=== PATIENT | female | born 1950 | race Hispanic/Latino ===

== ENCOUNTER 2020-09-27 14:43 | Observation (INO) | payer SELFPAY ==
--- NOTE | 2020-09-27 15:07 | RAD REPORT ---
EXAM DESCRIPTION: CT - Ct Stroke Brain Wo Cont - 09/27/2020 2:56 pm CLINICAL HISTORY: NUMBNESS Headache, drowsiness, CVA COMPARISON: No comparisons TECHNIQUE: All CT scans are performed using dose optimization technique as appropriate and may inclu de automated exposure control or mA/KV adjustment according to patient size. FINDINGS: No intracranial hemorrhage, hydrocephalus or extra-axial fluid collection.No areas of brai n edema or evidence of midline shift. Mild mucosal thickening of the right maxillary antrum sphenoid sinus. The calvarium is intact. IMPRESSION: No acute intracranial abnormality. The findings were discussed with Dr. Jerez in the ER On on 06/28/2020 at 2:55 p.m. by telephone.
[2020-09-27 15:11] LABS: Absolute Lymphocytes (CBC) 4.7 K/uL (0.7-4.9); Basophils % 0.2 % (0-1.3); Hematocrit 42.5 % (36.0-45.0); Lymphocytes % 43.3 % (15.3-44.8); MPV 8.8 fL (7.6-11.3)
[2020-09-27 15:19] LABS: Protime INR 1.03
[2020-09-27 15:25] LABS: Potassium 3.8 mmol/L (3.5-5.1)
--- NOTE | 2020-09-27 15:29 | RAD REPORT ---
EXAM DESCRIPTION: RAD - Chest Single View - 09/27/2020 3:07 pm CLINICAL HISTORY: stroke Chest pain. COMPARISON: <Comparisons> FINDINGS: Portable technique limits examination quality. The lungs are grossly clear. The heart is normal in size. No displaced fractures. IMPRESSION: No acute intrathoracic process suspected.
--- NOTE | 2020-09-27 16:10 | RAD REPORT ---
EXAM DESCRIPTION: CT - Head angio - 09/27/2020 3:55 pm CLINICAL HISTORY: TIA Headache, drowsiness COMPARISON: Ct Stroke Brain Wo Cont dated 09/27/2020 TECHNIQUE: CT angiography of the head was performed with MIPs. All CT scans are performed using dose optimization technique as appropriate and may include automated exposure control or mA/KV adjustment according to patient size. FINDINGS: No evidence of aneurysm is detected. No flow-limiting stenosis or vascular malformation id entified. The basilar artery is diminutive in size likely related to origin of both posterior c ommunicating is, normal variation Antegrade flow is seen in the vertebral arteries. Left vertebral artery is dominant The visualized dural venous sinuses are patent. Mild sinus opacification. IMPRESSION: No significant flow abnormality is detected.
--- NOTE | 2020-09-27 16:24 | RAD REPORT ---
EXAM DESCRIPTION: CT - Neck Angio - 09/27/2020 3:56 pm CLINICAL HISTORY: tia Headache, drowsiness COMPARISON: No comparisons TECHNIQUE: CT angiography of the neck vessels was performed with MIPs. All CT scans are performed using dose optimization technique as appropriate and may include automated exposure control or mA/KV adjustment according to patient size. FINDINGS: A left aortic arch is identified. Aberrant right subclavian artery noted, normal variant. No significant flow abnormality is seen of the common carotid bilaterally. Mild narrowing of both carotid bulbs is seen, slightly greater on the left. Normal flow is seen within both vertebral arteries. IMPRESSION: Mild narrowing (less than 50% based on NASCET criteria) of both carotid bulbs is noted, slightly greater on the left.
--- NOTE | 2020-09-27 16:56 | ER ---
Nurse's Notes [facility] Name: Luzma Wright Age: 70 yrs Sex: Female : 1950 Arrival Date: 09/27/2020 Time: 14:47 Bed 14 Private MD: Diagnosis: Transient cerebral ischemic attack, unspecified Presentation: 09/27 15:04 Chief complaint: EMS states: Pt began feeling numbness around 1400 in Left side of vg1 face, left arm and left leg lasting about 2-3 minutes. Pt sensation is intermittent. Then at 1420 she lost sensation again; then at 1430 and 1440, lasting about 2-3 minutes. Coronavirus screen: Client denies travel out of the [place] in the last 14 days. Ebola Screen: Patient negative for fever greater than or equal to 101.5 degrees Fahrenheit, and additional compatible Ebola Virus Disease symptoms. Initial Sepsis Screen: Does the patient meet any 2 criteria? Yes Does the patient have a suspected source of infection? No. Patient's initial sepsis screen is negative. Risk Assessment: Do you want to hurt yourself or someone else? Patient reports no desire to harm self or others. Onset of symptoms was September 27, 2020. 15:04 Method Of Arrival: EMS: [facility] 1 15:04 Acuity: HOOD 2 vg1 Triage Assessment: 15:09 Pain: Denies pain. vg1 15:09 General: Appears in no apparent distress. comfortable, Behavior is calm, cooperative. vg1 EENT: No signs and/or symptoms were reported regarding the EENT system. Neuro: Level of Consciousness is awake, alert, obeys commands, Oriented to person, place, time, situation, Cashier Payments Received are equal bilaterally Moves all extremities. Speech is normal, Facial symmetry appears normal. Cardiovascular: Patient's skin is warm and dry. Respiratory: Airway is patent Respiratory effort is even, unlabored. GI: No signs and/or symptoms were reported involving the gastrointestinal system. : No signs and/or symptoms were reported regarding the genitourinary system. Derm: Skin is intact, is healthy with good turgor. Musculoskeletal: Circulation, motion, and sensation intact. Historical: - Allergies: 15:26 PENICILLINS; vg1 - Immunization history:: Adult Immunizations up to date. - Social history:: Smoking status: unknown. Screenin:08 Abuse screen: Denies threats or abuse. Nutritional screening: No deficits noted. vg1 Tuberculosis screening: No symptoms or risk factors identified. Fall Risk No fall in past 12 months (0 pts). No secondary diagnosis (0 pts). IV access (20 points). Ambulatory Aid- Gait- Impaired (20 pts.). Mental Status- Oriented to own ability (0 pts). Total [place] Fall Scale indicates Low Risk Score (25-44 pts). Fall prevention measures have been instituted. Side Rails Up X 2 Placed close to Nursing Station Family Present and informed to notify staff if they need to leave bedside. Assessment: 14:43 Reassessment: Code Stroke called. hb 16:00 Reassessment: Patient appears in no apparent distress at this time. No changes from vg1 previously documented assessment. Patient and/or family updated on plan of care and expected duration. Pain level reassessed. Patient is alert, oriented x 3, equal unlabored respirations, skin warm/dry/pink. Patient denies pain at this time. 16:53 Reassessment: Patient appears in no apparent distress at this time. Patient and/or 1 family updated on plan of care and expected duration. Pain level reassessed. Patient is alert, oriented x 3, equal unlabored respirations, skin warm/dry/pink. Patient denies pain at this time. Patient states feeling better. 19:05 Reassessment: Patient appears in no apparent distress at this time. Patient and/or family updated on plan of care and expected duration. Pain level reassessed. Patient is alert, oriented x 3, equal unlabored respirations, skin warm/dry/pink. Vital Signs: 15:04 BP 203 / 76; Pulse 68; Resp 22; Temp 98.2; Pulse Ox 98% on R/A; Weight 65.77 kg; Height vg1 5 ft. 2 in. (157.48 cm); Pain 0/10; 16:02 BP 173 / 64; Pulse 58; Resp 14; Pulse Ox 98% on R/A; vg1 16:52 BP 183 / 66; Pulse 60; Resp 16; Pulse Ox 96% on R/A; vg1 19:00 BP 177 / 80; Pulse 55; Resp 18; Pulse Ox 98% on R/A; wh 20:11 BP 167 / 78; Pulse 56; Resp 18; Pulse Ox 97% on R/A; wh 15:04 Body Mass Index 26.52 (65.77 kg, 157.48 cm) vg1 NIH Stroke Scale Scores: 15:08 NIHSS Score: 0 vg1 16:47 NIHSS Score: 0 jr8 ED Course: 14:47 Patient arrived in ED. vg1 14:52 Initial lab(s) drawn, by ED staff, sent to lab. EKG done, by ED staff, reviewed by Pool TORRES. 14:52 Maintain EMS IV. Dressing intact. Site clean \T\ dry. Gauge \T\ site: 20G R FA. hb 14:52 Patient has correct armband on for positive identification. Placed in gown. Bed in low hb position. Call light in reach. Side rails up X2. classroom monitor on. Pulse ox on. NIBP on. Head of bed elevated. 14:56 CT Stroke Brain w/o Contrast In Process Unspecified. EDMS 14:57 Arm band placed on. hb 15:00 Pool Clayton PA is PHCP. jr8 15:00 Vini Jerez MD is Attending Physician. jr8 15:01 Sana Carvajal RN is Primary Nurse. vg1 15:06 Triage completed. vg1 15:07 Stroke CXR 1 View In Process Unspecified. EDMS 15:10 Inserted saline lock: 20 gauge in left antecubital area, using aseptic technique. vg1 ,using aseptic technique. completed by DEIDRA Lopez. 15:55 CT Head Angio In Process Unspecified. EDMS 15:55 CT Neck Angio In Process Unspecified. EDMS 16:56 Lo Boyle MD is Hospitalizing Provider. jr8 19:11 Report given to DEIDRA Manning. vg1 20:12 No provider procedures requiring assistance completed. Patient admitted, IV remains in place. Administered Medications: 16:48 Drug: PlaVIX (clopidogrel) 75 mg Route: PO; vg1 19:27 Follow up: Response: No adverse reaction 16:49 Drug: foLIC Acid 1 mg Route: IVPB; Site: left antecubital; vg1 20:13 Follow up: Response: No adverse reaction; IV Status: Completed infusion Outcome: 16:56 Decision to Hospitalize by Provider. jr8 20:12 Admitted to Tele accompanied by tech, via wheelchair, room 403, with chart, Report wh called to Isaac Dobson RN 20:12 Condition: stable 20:12 Instructed on the need for admit. 20:39 Patient left the ED. NIH Stroke Scale - NIH Stroke Score Date: 09/27/2020 Time: 15:08 Total Score = 0 1a. Level of Consciousness (LOC) - 0(Alert) 1b. Level of Consciousness (LOC) (Year \T\ Age) - 0(Both) 1c. LOC Commands (Open \T\ Closes Eyes/Road Supervisor Of Engines) - 0(Both) 2. Best Gaze (Lateral Gaze Paresis) - 0(Normal) 3. Visual Field Loss - 0(No visual loss) 4. Facial Palsy - 0(Normal) 5a. Left Arm: Motor (10-second hold) - 0(No drift) 5b. Right Arm: Motor (10-second hold) - 0(No drift) 6a. Left Leg: Motor (5-second hold - always test supine) - 0(No drift) 6b. Right Leg: Motor (5-second hold - always test supine) - 0(No drift) 7. Limb Ataxia (finger/nose \T\ heel/gregorio - test with eyes open) - 0(Absent) 8. Sensory Loss (pinprick arms/legs/face) - 0(Normal) 9. Best Language: Aphasia (description/naming/reading) - 0(No aphasia) 10. Dysarthria (speech clarity - read or repeat words) - 0(Normal) 11. Extinction and Inattention (visual/tactile/auditory/spatial/personal) - 0(No abnormality) Initials: vg1 NIH Stroke Scale - NIH Stroke Score Date: 09/27/2020 Time: 16:47 Total Score = 0 1a. Level of Consciousness (LOC) - 0(Alert) 1b. Level of Consciousness (LOC) (Year \T\ Age) - 0(Both) 1c. LOC Commands (Open \T\ Closes Eyes/Road Supervisor Of Engines) - 0(Both) 2. Best Gaze (Lateral Gaze Paresis) - 0(Normal) 3. Visual Field Loss - 0(No visual loss) 4. Facial Palsy - 0(Normal) 5a. Left Arm: Motor (10-second hold) - 0(No drift) 5b. Right Arm: Motor (10-second hold) - 0(No drift) 6a. Left Leg: Motor (5-second hold - always test supine) - 0(No drift) 6b. Right Leg: Motor (5-second hold - always test supine) - 0(No drift) 7. Limb Ataxia (finger/nose \T\ heel/gregorio - test with eyes open) - 0(Absent) 8. Sensory Loss (pinprick arms/legs/face) - 0(Normal) 9. Best Language: Aphasia (description/naming/reading) - 0(No aphasia) 10. Dysarthria (speech clarity - read or repeat words) - 0(Normal) 11. Extinction and Inattention (visual/tactile/auditory/spatial/personal) - 0(No abnormality) Initials: jr8 Signatures: Dispatcher [employer] EDMS Pool Clayton PA PA jr8 Adriana Edouard RN RN Nigel Cazares, RN RN Sana Carvajal RN RN vg1 Corrections: (The following items were deleted from the chart) 15:28 15:07 Allergies: No Known Allergies; vg1 vg1
--- NOTE | 2020-09-27 16:57 | EDPHYS ---
Physician Documentation [facility] Name: Luzma Wright Age: 70 yrs Sex: Female : 1950 Arrival Date: 09/27/2020 Time: 14:47 Bed 14 Private MD: ED Physician Vini Jerez HPI: 09/27 16:47 This 70 yrs old Female presents to ER via EMS with complaints of S/S of jr8 Possible Stroke. 16:47 The patient's problem is reported as a facial droop, on left, dysphasia, expressive jr8 aphasia, weakness, in the left upper extremity, in the left lower extremity. Onset: The symptoms/episode began/occurred acutely, today, at 14:00. The symptoms are alleviated by nothing. The symptoms are aggravated by nothing. Associated signs and symptoms: The patient has no apparent associated signs or symptoms. Severity of symptoms: At their worst the symptoms were moderate in the emergency department the symptoms have resolved. Patient's baseline: Neuro: alert and fully oriented, Motor: no deficits, Ambulation: walks without assistance, Speech: normal. The patient has not experienced similar symptoms in the past. The patient has not recently seen a physician. Patient called EMS out after having sudden onset facial droop and weakness. EMS stated that the episode resolved by the time they got there but since then has had three other episodes lasting approximately 2-3 min. Patient again with complete symptom resolution upon arrival . Historical: - Allergies: 15:26 PENICILLINS; vg1 - Immunization history:: Adult Immunizations up to date. - Social history:: Smoking status: unknown. ROS: 16:47 Eyes: Negative for injury, pain, redness, and discharge, ENT: Negative for injury, jr8 pain, and discharge, Neck: Negative for injury, pain, and swelling, Cardiovascular: Negative for chest pain, palpitations, and edema, Respiratory: Negative for shortness of breath, cough, wheezing, and pleuritic chest pain, Abdomen/GI: Negative for abdominal pain, nausea, vomiting, diarrhea, and constipation, Back: Negative for injury and pain, MS/Extremity: Negative for injury and deformity, Skin: Negative for injury, rash, and discoloration. 16:47 Neuro: Positive for weakness. Exam: 16:47 Radiologist reports: No acute ischemia or blood noted jr8 16:47 Constitutional: This is a well developed, well nourished patient who is awake, alert, and in no acute distress. ENT: Nares patent. No nasal discharge, no septal abnormalities noted. Tympanic membranes are normal and external auditory canals are clear. Oropharynx with no redness, swelling, or masses, exudates, or evidence of obstruction, uvula midline. Mucous membranes moist. Neck: Trachea midline, no thyromegaly or masses palpated, and no cervical lymphadenopathy. Supple, full range of motion without nuchal rigidity, or vertebral point tenderness. No Meningismus. Cardiovascular: Regular rate and rhythm with a normal S1 and S2. No gallops, murmurs, or rubs. Normal PMI, no JVD. No pulse deficits. Respiratory: Lungs have equal breath sounds bilaterally, clear to auscultation and percussion. No rales, rhonchi or wheezes noted. No increased work of breathing, no retractions or nasal flaring. Abdomen/GI: Soft, non-tender, with normal bowel sounds. No distension or tympany. No guarding or rebound. No evidence of tenderness throughout. Skin: Warm, dry with normal turgor. Normal color with no rashes, no lesions, and no evidence of cellulitis. MS/ Extremity: Pulses equal, no cyanosis. Neurovascular intact. Full, normal range of motion. Neuro: Awake and alert, GCS 15, oriented to person, place, time, and situation. Cranial nerves II-XII grossly intact. Motor strength 5/5 in all extremities. Sensory grossly intact. Cerebellar exam normal. 16:47 ECG was reviewed by the Attending Physician. Vital Signs: 15:04 BP 203 / 76; Pulse 68; Resp 22; Temp 98.2; Pulse Ox 98% on R/A; Weight 65.77 kg; Height vg1 5 ft. 2 in. (157.48 cm); Pain 0/10; 16:02 BP 173 / 64; Pulse 58; Resp 14; Pulse Ox 98% on R/A; vg1 16:52 BP 183 / 66; Pulse 60; Resp 16; Pulse Ox 96% on R/A; vg1 19:00 BP 177 / 80; Pulse 55; Resp 18; Pulse Ox 98% on R/A; wh 20:11 BP 167 / 78; Pulse 56; Resp 18; Pulse Ox 97% on R/A; wh 15:04 Body Mass Index 26.52 (65.77 kg, 157.48 cm) vg1 NIH Stroke Scale Scores: 15:08 NIHSS Score: 0 vg1 16:47 NIHSS Score: 0 jr8 MDM: 15:00 Patient medically screened. jr8 16:55 Data reviewed: vital signs, nurses notes, lab test result(s), EKG, radiologic studies, jr8 CT scan, plain films. Data interpreted: Pulse oximetry: on room air is 96 %. Interpretation: normal. Counseling: I had a detailed discussion with the patient and/or guardian regarding: the historical points, exam findings, and any diagnostic results supporting the discharge/admit diagnosis, lab results, radiology results, the need for further work-up and treatment in the hospital. ED course: Dr. Almaraz consulted and will see patient. Dr. Boyle to admit patient . 09/27 14:50 Order name: Basic Metabolic Panel; Complete Time: 15:45 [facility] 09/27 14:50 Order name: CBC with Diff; Complete Time: 15:23 [facility] 09/27 14:50 Order name: Protime (+inr); Complete Time: 15:45 [facility] 09/27 14:50 Order name: Ptt, Activated; Complete Time: 15:45 [facility] 09/27 15:07 Order name: Glucose, Ancillary Testing; Complete Time: 15:23 [facility] 09/27 17:20 Order name: Troponin I [facility] 09/27 17:20 Order name: Liver (Hepatic) Function [facility] 09/27 17:20 Order name: Magnesium [facility] 09/27 17:30 Order name: COVID-19 : Document "Date of Symptom Onset" if Symptomatic. sv 09/27 17:47 Order name: Comprehensive Metabolic Panel [facility] 09/27 14:50 Order name: Stroke CXR 1 View; Complete Time: 15:45 [facility] 09/27 14:50 Order name: CT Stroke Brain w/o Contrast; Complete Time: 15:23 [facility] 09/27 17:47 Order name: Comprehensive Metabolic Panel [facility] 09/27 17:47 Order name: CBC with Automated Diff [facility] 09/27 17:47 Order name: CBC with Automated Diff [facility] 09/27 17:47 Order name: Lipid Profile [facility] 09/27 17:47 Order name: Lipid Profile [facility] 09/27 17:47 Order name: Magnesium [facility] 09/27 17:47 Order name: Magnesium [facility] 09/27 17:47 Order name: Phosphorus [facility] 09/27 17:47 Order name: Phosphorus [facility] 09/27 17:47 Order name: Troponin I [facility] 09/27 17:47 Order name: Troponin I [facility] 09/27 19:45 Order name: SARS-COV-2 RT PCR [facility] 09/27 14:50 Order name: EKG; Complete Time: 14:51 09/27 14:50 Order name: Accucheck; Complete Time: 15: 09/27 14:50 Order name: Cardiac monitoring; Complete Time: 15: 09/27 14:50 Order name: EKG - Nurse/Tech; Complete Time: 15:12 09/27 14:50 Order name: IV Saline Lock; Complete Time: 15: 09/27 14:50 Order name: Labs collected and sent; Complete Time: 15: 09/27 14:50 Order name: NPO; Complete Time: 15: 09/27 14:50 Order name: O2 Per Protocol; Complete Time: 15: 09/27 14:50 Order name: O2 Sat Monitoring; Complete Time: 15: 09/27 14:50 Order name: Stroke Swallow Screen; Complete Time: 17:58 09/27 14:51 Order name: EKG; Complete Time: 14:51 09/27 14:51 Order name: Accucheck; Complete Time: 15: 09/27 14:51 Order name: Cardiac monitoring; Complete Time: 14:59 09/27 14:51 Order name: EKG - Nurse/Tech; Complete Time: 14:59 09/27 14:51 Order name: IV Saline Lock; Complete Time: 14:59 09/27 14:51 Order name: Labs collected and sent; Complete Time: 14:59 09/27 14:51 Order name: NPO; Complete Time: 14:59 09/27 14:51 Order name: O2 Per Protocol; Complete Time: 14:59 09/27 14:51 Order name: O2 Sat Monitoring; Complete Time: 14:59 09/27 14:51 Order name: Stroke Swallow Screen; Complete Time: 17:58 1 09/27 15:07 Order name: CT Head Angio; Complete Time: 16:30 jr8 09/27 15:07 Order name: CT Neck Angio; Complete Time: 16:30 jr8 09/27 17:47 Order name: Physical Therapy Consult [facility] 09/27 17:47 Order name: NPO [facility] 09/27 17:47 Order name: EKG Electrocardiogram [facility] 09/27 17:47 Order name: EKG Electrocardiogram [facility] 09/27 17:48 Order name: Speech Therapy Consult [facility] EC:47 Rate is 71 beats/min. Rhythm is regular, Normal Sinus Rhythm. QRS [place] is Normal. [place] jr8 interval is normal at 150 msec. QRS interval is normal at 84 msec. QT interval is normal at 416 msec. No Q waves. T waves are Normal. No ST changes noted. Clinical impression: Normal ECG. Reviewed by me. Administered Medications: 16:48 Drug: PlaVIX (clopidogrel) 75 mg Route: PO; vg1 19:27 Follow up: Response: No adverse reaction 16:49 Drug: foLIC Acid 1 mg Route: IVPB; Site: left antecubital; vg1 20:13 Follow up: Response: No adverse reaction; IV Status: Completed infusion Disposition: 09/27/20 16:56 Hospitalization ordered by Lo Boyle for Observation. Preliminary diagnosis is Transient cerebral ischemic attack, unspecified. - Bed requested for Telemetry/MedSurg (observation). - Status is Observation. - Condition is Stable. - Problem is new. - Symptoms are resolved. NIH Stroke Scale - NIH Stroke Score Date: 09/27/2020 Time: 15:08 Total Score = 0 1a. Level of Consciousness (LOC) - 0(Alert) 1b. Level of Consciousness (LOC) (Year \\T\\ Age) - 0(Both) 1c. LOC Commands (Open \\T\\ Closes Eyes/Long Term Care Phlebotomist) - 0(Both) 2. Best Gaze (Lateral Gaze Paresis) - 0(Normal) 3. Visual Field Loss - 0(No visual loss) 4. Facial Palsy - 0(Normal) 5a. Left Arm: Motor (10-second hold) - 0(No drift) 5b. Right Arm: Motor (10-second hold) - 0(No drift) 6a. Left Leg: Motor (5-second hold - always test supine) - 0(No drift) 6b. Right Leg: Motor (5-second hold - always test supine) - 0(No drift) 7. Limb Ataxia (finger/nose \\T\\ heel/gregorio - test with eyes open) - 0(Absent) 8. Sensory Loss (pinprick arms/legs/face) - 0(Normal) 9. Best Language: Aphasia (description/naming/reading) - 0(No aphasia) 10. Dysarthria (speech clarity - read or repeat words) - 0(Normal) 11. Extinction and Inattention (visual/tactile/auditory/spatial/personal) - 0(No abnormality) Initials: vg1 NIH Stroke Scale - NIH Stroke Score Date: 09/27/2020 Time: 16:47 Total Score = 0 1a. Level of Consciousness (LOC) - 0(Alert) 1b. Level of Consciousness (LOC) (Year \\T\\ Age) - 0(Both) 1c. LOC Commands (Open \\T\\ Closes Eyes/Long Term Care Phlebotomist) - 0(Both) 2. Best Gaze (Lateral Gaze Paresis) - 0(Normal) 3. Visual Field Loss - 0(No visual loss) 4. Facial Palsy - 0(Normal) 5a. Left Arm: Motor (10-second hold) - 0(No drift) 5b. Right Arm: Motor (10-second hold) - 0(No drift) 6a. Left Leg: Motor (5-second hold - always test supine) - 0(No drift) 6b. Right Leg: Motor (5-second hold - always test supine) - 0(No drift) 7. Limb Ataxia (finger/nose \\T\\ heel/gregorio - test with eyes open) - 0(Absent) 8. Sensory Loss (pinprick arms/legs/face) - 0(Normal) 9. Best Language: Aphasia (description/naming/reading) - 0(No aphasia) 10. Dysarthria (speech clarity - read or repeat words) - 0(Normal) 11. Extinction and Inattention (visual/tactile/auditory/spatial/personal) - 0(No abnormality) Initials: jr8 Addendum: 09/29/2020 14:56 Co-signature as Attending Physician, Vini Jerez MD I agree with the kdr assessment and plan of care. Signatures: Dispatcher [facility] [place], Laurie, RN RN dw Vini Jerez MD MD kdr Martinez, Eric em1 Pool Clayton, MELISSA PA jr8 Nigel Silva, DEIDRA GAY Wei, DEIDRA Hood RN vg1 Corrections: (The following items were deleted from the chart) 09/27 14:52 14:50 CT-STROKE BRAIN W/O CONTRAST+CT.RAD.BRZ ordered. EDMS EDMS 15:06 14:51 Chest Single View+RAD.RAD.BRZ ordered. EDMS EDMS 15:15 14:51 BASIC METABOLIC PANEL+C.LAB.BRZ ordered. EDMS EDMS 15:15 14:51 CBC+H.LAB.BRZ ordered. EDMS EDMS 15:15 14:51 PROTIME (+INR)+COAG.LAB.BRZ ordered. EDMS EDMS 15:15 14:51 PTT, ACTIVATED+COAG.LAB.BRZ ordered. EDMS EDMS 15:28 15:07 Allergies: No Known Allergies; vg1 vg1 19:53 16:56 Hospitalization Ordered by Lo Boyle MD for Observation. Preliminary dw diagnosis is Transient cerebral ischemic attack, unspecified. Bed requested for Telemetry/MedSurg (observation). Status is Observation. Condition is Stable. Problem is new. Symptoms are resolved. jr8 20:39 19:53 09/27/2020 16:56 Hospitalization Ordered by Lo Boyle MD for Observation. Preliminary diagnosis is Transient cerebral ischemic attack, unspecified. Bed requested for Telemetry/MedSurg (observation). Status is Observation. Condition is Stable. Problem is new. Symptoms are resolved. dw
[2020-09-27] MEDS ORDERED: CLOPIDOGREL 75 MG TABLET ONE (16:59)
[2020-09-27] MEDS ORDERED: FOLIC ACID 5 MG/ML VIAL ONE (17:01)
[2020-09-27] MEDS ORDERED: ONDANSETRON 4 MG/2 ML VIAL IV PRN (17:43)
[2020-09-27] MEDS ORDERED: ACETAMINOPHEN 500 MG TAB PO PRN (17:43)
[2020-09-27 20:08] LABS: ALT/SGPT 25 U/L (12-78); AST/SGOT 11 U/L (15-37); Albumin 3.8 g/dL (3.4-5.0); Alkaline Phosphatase 118 U/L (45-117); Bilirubin Direct < 0.1 mg/dL (0-0.2); Bilirubin Total 0.2 mg/dL (0.2-1.0); Magnesium 2.1 mg/dL (1.8-2.4); Protein, Total 7.8 g/dL (6.4-8.2); Troponin I < 0.02 ng/mL (0.0-0.045)
[2020-09-27] MEDS: NA CHLORIDE 0.9% 1,000 ML IV SCH (21:59)
[2020-09-27] MEDS: ATORVASTATIN 20 MG TAB PO SCH ×2 (21:59→22:00)
[2020-09-28 00:05] VITALS: BMI 26.5
--- NOTE | 2020-09-28 02:07 | P.HP ---
Certification for Inpatient Patient admitted to: Observation With expected LOS: <2 Midnights Patient will require the following post-hospital care: None Practitioner: I am a practitioner with admitting privileges, knowledge of patient current condition, hospital course, and medical plan of care. Services: Services provided to patient in accordance with Admission requirements found in Title 42 Section 412.3 of the Code of Federal Regulations Patient History Date of Service: 09/27/20 Reason for admission: Left-sided paresthesias and expressive aphasia History of Present Illness: Patient is a 70-year-old female who presented to the emergency room with paresthesias of the left side and expressive aphasia. Patient's symptoms started around 2:00 p.m.. Patient family notified EMS and they brought patient to the emergency room. Patient had these episodes occur on 3 different occasions. By the time patient came into the emergency room patient was started on anti-platelet therapy and statin therapy. Patient was admitted for further evaluation. Patient's CT of the head was unremarkable. Patient's CT angiogram and neck angiogram also were unremarkable. Patient will be admitted to the hospital for further evaluation. Will monitor on telemetry to make sure patient does not have any cardiac dysrhythmia. Continue with current plan of care at this time. Allergies Penicillins Allergy (Verified 09/27/20 20:45) Itching/Hives/Rash Home Medications: Aspirin [Low Dose Aspirin EC] 81 mg PO DAILY WITH BREAKFAST 09/28/20 - Past Medical/Surgical History Diabetic: No -: Coronary artery disease -: cardiac surgery - Family History Father Family History: Reviewed- Non-Contributory - Social History Smoking Status: Current every day smoker Alcohol use: No CD- Drugs: No Caffeine use: Yes Place of Residence: Home Review of Systems 10-point ROS is otherwise unremarkable Physical Examination - Vital Signs Temperature: 97.3 F Blood Pressure: 150/80 Pulse: 52 Respirations: 19 Pulse Ox (%): 99 - Physical Exam General: Alert, In no apparent distress, Oriented x3 HEENT: Atraumatic, PERRLA, Mucous membr. moist/pink, EOMI, Sclerae nonicteric Neck: Supple, 2+ carotid pulse no bruit, No LAD, Without JVD or thyroid abnormality Respiratory: Clear to auscultation bilaterally, Normal air movement Cardiovascular: Regular rate/rhythm, Normal S1 S2, No murmurs Gastrointestinal: Normal bowel sounds, Soft and benign, Non-distended, No tenderness Musculoskeletal: No clubbing, No swelling, No tenderness Integumentary: No rashes Neurological: Normal gait, Normal speech, Normal strength at 5/5 x4 extr, Normal tone, Sensation intact, Cranial nerves 3-12 intact, Normal affect Lymphatics: No axilla or inguinal lymphadenopathy - Studies Laboratory Data (last 24 hrs) 09/27/20 14:54: Magnesium 2.1, Total Bilirubin 0.2, AST 11 L, ALT 25, Alkaline Phosphatase 118 H, Troponin I < 0.02 09/27/20 14:54: PT 11.9, INR 1.03, APTT 30.1 09/27/20 14:54: WBC 10.80, Hgb 14.2, Hct 42.5, Plt Count 264 09/27/20 14:54: Sodium 141, Potassium 3.8, BUN 15, Creatinine 0.72, Glucose 147 H 09/27/20 14:51: PT Cancelled, INR Cancelled, APTT Cancelled 09/27/20 14:51: WBC Cancelled, Hgb Cancelled, Hct Cancelled, Plt Count Cancelled 09/27/20 14:51: Sodium Cancelled, Potassium Cancelled, BUN Cancelled, Creatinine Cancelled, Glucose Cancelled Assessment & Plan - Problems (Diagnosis) (1) Transient ischemic attack Current Visit: Yes Status: Acute (2) Bruit of left carotid artery Current Visit: Yes Status: Acute (3) Hypertension Current Visit: Yes Status: Acute (4) Type 2 diabetes mellitus Current Visit: Yes Status: Acute - Plan Plan: 1. Continue with anti-platelet therapy 2. Continue with statin therapy 3. Lipid profile 4. DVT prophylaxis 5. Patient's speech is appropriate and physical therapy is not necessary as strength is within normal limits 6. GI and DVT prophylaxis Discharge Plan: Home Plan to discharge in: Greater than 2 days - Advance Directives Does patient have a Living Will: No Does patient have a Durable POA for Healthcare: No - Code Status/Comfort Care Code Status Assessed: Yes Code Status: Full Code Critical Care: No Time Spent Managing PTS Care (In Minutes): 54
[2020-09-28 07:43] LABS: Absolute Lymphocytes (CBC) 4.2 K/uL (0.7-4.9); Basophils % 0.7 % (0-1.3); Hematocrit 38.8 % (36.0-45.0); Lymphocytes % 42.6 % (15.3-44.8); MPV 8.9 fL (7.6-11.3); RBC Red Blood Cell Count 4.52 M/uL (3.86-4.86)
[2020-09-28 07:53] LABS: ALT/SGPT 21 U/L (12-78); AST/SGOT 14 U/L (15-37); Albumin 3.2 g/dL (3.4-5.0); Alkaline Phosphatase 95 U/L (45-117); BUN Blood Urea Nitrogen 11 mg/dL (7-18); Bicarbonate 23 mmol/L (21-32); Bilirubin Total 0.4 mg/dL (0.2-1.0); Glucose Level 83 mg/dL (74-106); HDL Cholesterol 46 mg/dL (40-60); LDL Cholesterol, Calculated 131 (<130); Magnesium 2.2 mg/dL (1.8-2.4); Phosphorus 3.4 mg/dL (2.5-4.9); Potassium 3.7 mmol/L (3.5-5.1); Protein, Total 6.8 g/dL (6.4-8.2); Sodium Level 143 mmol/L (136-145); Troponin I < 0.02 ng/mL (0.0-0.045)
[2020-09-28] MEDS ORDERED: POTASSIUM CL SA 10 MEQ TAB PO ONE (07:58)
[2020-09-28 08:44] LABS: Folic Acid, (Folate) > 20.0 ng/mL (3.1-17.5)
[2020-09-28] MEDS ORDERED: ASPIRIN EC 81 MG TAB PO SCH (09:00)
[2020-09-28] MEDS ORDERED: ENOXAPARIN 40 MG/0.4 ML SQ SCH (09:00)
[2020-09-28] MEDS: NA CHLORIDE 0.9% 1,000 ML IV SCH (09:06)
[2020-09-28 09:11] VITALS: O2SAT 98
[2020-09-28 10:40] VITALS: TEMP 98
[2020-09-28 12:07] VITALS: BP 150/72
--- NOTE | 2020-09-29 02:35 | P.DS ---
Discharge Date: 09/28/20 Disposition: ROUTINE DISCHARGE Discharge Condition: GOOD Reason for Admission: Left-sided paresthesias and expressive aphasia - Problems (1) Transient ischemic attack Status: Acute (2) Bruit of left carotid artery Status: Acute (3) Hypertension Status: Acute (4) Type 2 diabetes mellitus Status: Acute Brief History of Present Illness: Patient is a 70-year-old female who presented to the emergency room with paresthesias of the left side and expressive aphasia. Patient's symptoms started around 2:00 p.m.. Patient family notified EMS and they brought patient to the emergency room. Patient had these episodes occur on 3 different occasions. By the time patient came into the emergency room patient was started on anti-platelet therapy and statin therapy. Patient was admitted for further evaluation. Patient's CT of the head was unremarkable. Patient's CT angiogram and neck angiogram also were unremarkable. Patient will be admitted to the hospital for further evaluation. Will monitor on telemetry to make sure patient does not have any cardiac dysrhythmia. Continue with current plan of care at this time. Hospital Course: Patient clinical symptoms are improved. Patient carotid Doppler showed mild atherosclerosis in the left carotid artery. Patient is stable for discharge at this time. Outpatient follow with Neurology and Cardiology. LDL was elevated and patient will continue with statin therapy as with anti-platelet therapy. Vital Signs/Physical Exam: Temp Pulse Resp BP Pulse Ox 98 F 51 16 150/72 H 98 09/28/20 08:00 09/28/20 08:00 09/28/20 08:00 09/28/20 12:07 09/28/20 08:00 General: Alert, In no apparent distress, Oriented x3 Laboratory Data at Discharge: WBC 9.90 K/uL (4.3-10.9) 09/28/20 05:30 Hgb 13.3 g/dL (12.0-15.0) 09/28/20 05:30 Hct 38.8 % (36.0-45.0) 09/28/20 05:30 Plt Count 239 K/uL (152-406) 09/28/20 05:30 PT 11.9 SECONDS (9.5-12.5) 09/27/20 14:54 INR 1.03 09/27/20 14:54 APTT 30.1 SECONDS (24.3-36.9) 09/27/20 14:54 Sodium 143 mmol/L (136-145) 09/28/20 05:30 Potassium 3.7 mmol/L (3.5-5.1) 09/28/20 05:30 BUN 11 mg/dL (7-18) 09/28/20 05:30 Creatinine 0.60 mg/dL (0.55-1.3) 09/28/20 05:30 Glucose 83 mg/dL (74-106) 09/28/20 05:30 Phosphorus 3.4 mg/dL (2.5-4.9) 09/28/20 05:30 Magnesium 2.2 mg/dL (1.8-2.4) 09/28/20 05:30 Total Bilirubin 0.4 mg/dL (0.2-1.0) 09/28/20 05:30 AST 14 U/L (15-37) L 09/28/20 05:30 ALT 21 U/L (12-78) 09/28/20 05:30 Alkaline Phosphatase 95 U/L (45-117) 09/28/20 05:30 Troponin I < 0.02 ng/mL (0.0-0.045) 09/28/20 05:30 Triglycerides 137 mg/dL (<150) 09/28/20 05:30 Cholesterol 204 mg/dL (<200) H 09/28/20 05:30 HDL Cholesterol 46 mg/dL (40-60) 09/28/20 05:30 Cholesterol/HDL Ratio 4.43 09/28/20 05:30 Home Medications: Aspirin [Low Dose Aspirin EC] 81 mg PO DAILY WITH BREAKFAST 09/28/20 Atorvastatin Calcium [Lipitor*] 40 mg PO BEDTIME #30 tab 09/28/20 Clopidogrel Bisulfate [Plavix] 75 mg PO DAILY #30 tablet 09/28/20 New Medications: Atorvastatin Calcium [Lipitor*] 40 mg PO BEDTIME #30 tab Clopidogrel Bisulfate [Plavix] 75 mg PO DAILY #30 tablet Physician Discharge Instructions: OK TO DC IV AND DC HOME FOLLOW-UP WITH PRIMARY CARE PROVIDER IN 1-2 WEEKS FOLLOW-UP WITH NEUROLOGY IN 1-2 WEEKS RETURN TO THE ER if symptoms worsen CALL or TEXT DR. CASANOVA AT [phone] IF ANY QUESTIONS REGARDING HOSPITAL STAY. PLEASE CALL THE FLOOR AT [phone] IF ANY MEDICATION OR NURSING QUESTIONS. Diet: AHA Activity: Fall precautions Time spent managing pt's care (in minutes): 35
== END 2020-09-28 12:05 | disposition home or self-care (01) ==
LOC: ER 14:43 → ERHOLD 17:44 → 4TH 20:18
PROVIDERS: ADMIT Hospitalist; ATTEND Hospitalist
DX: G45.9 Transient cerebral ischemic attack, unspecified (principal); I65.22 Occlusion and stenosis of left carotid artery; I25.10 Atherosclerotic heart disease of native coronary artery without angina pectoris; I10 Essential (primary) hypertension; E11.9 Type 2 diabetes mellitus without complications; F17.210 Nicotine dependence, cigarettes, uncomplicated; Z79.82 Long term (current) use of aspirin; Z88.0 Allergy status to penicillin; Z20.822 Contact with and (suspected) exposure to COVID-19
CPT/HCPCS: 36415; 70450; 70496; 70498; 71045; 80048; 80053; 80061; 80076; 82607; 82746; 82947; 83540; 83735; 84100; 84484; 85025; 85610; 85730; 93005; 96365; 96366; 99285; G0378; J1650; J7030; Q9967; U0003